=== PATIENT | male | born 1950 | race Caucasian/White ===

== ENCOUNTER 2019-04-02 06:12 | Inpatient (IN) | payer OTHER, BC ==
[2019-03-29 17:38] VITALS: BMI 30.6
[2019-04-02] MEDS ORDERED: VANCOMYCIN 1,250 MG in DEXTROSE 5%-WATER - 250 ML IVPB ONE (07:10)
[2019-04-02] MEDS ORDERED: CEFAZOLIN 2 GM/D5W 2 GM/50 ML ML IVPB ONE (07:10)
[2019-04-02] MEDS ORDERED: BENZOIN TINCTURE SWABSTICK TP ONE (07:14)
[2019-04-02] MEDS ORDERED: HEPARIN NA (PORCINE) 5,000 UNITS/ML 1ML VIAL ONE (07:14)
[2019-04-02] MEDS ORDERED: fentaNYL CITRATE 250 MCG/5 ML VIAL ONE (07:15)
[2019-04-02] MEDS ORDERED: PROPOFOL 20 ML ONE ×9 (07:15→10:18)
[2019-04-02] MEDS ORDERED: THROMBIN (BOVINE) 5,000 UNIT VIAL TP ONE ×2 (07:15→09:25)
[2019-04-02] MEDS ORDERED: MIDAZOLAM HCL 2 MG/2 ML SINGLE DOSE VIAL ONE ×2 (07:15→08:26)
[2019-04-02] MEDS ORDERED: VANCOMYCIN 1,000 MG VIAL (RESTRICTED TO ID ONLY) ONE (07:16)
[2019-04-02] MEDS ORDERED: ONDANSETRON 4 MG/2 ML VIAL ONE (07:16)
[2019-04-02] MEDS ORDERED: DEXAMETHASONE SOD PHOSPHATE 4 MG/1 ML VIAL ONE ×2 (07:16→07:36)
[2019-04-02] MEDS ORDERED: ceFAZolin SODIUM 1 GM VIAL ONE ×2 (07:16→17:40)
[2019-04-02] MEDS ORDERED: SODIUM CHLORIDE 0.9% P/F 10 ML VIAL IJ ONE (07:16)
[2019-04-02] MEDS ORDERED: EPHEDRINE SULFATE/0.9% NACL/PF 50 MG/10 ML SYRINGE NR ONE (07:27)
[2019-04-02] MEDS ORDERED: SUCCINYLCHOLINE CHLORIDE 200 MG/10 ML SYRINGE ONE (07:29)
[2019-04-02] MEDS ORDERED: TRANEXAMIC ACID 1000 MG/10 ML VIAL ONE (07:36)
[2019-04-02] MEDS ORDERED: ONDANSETRON 4 MG/2 ML VIAL IVPUSH PRN ×2 (07:48→11:12)
[2019-04-02] MEDS ORDERED: HYDROmorphone HCL CARPU-JECT 2 MG/1 ML DISP.SYRIN IVPUSH PRN (07:51)
[2019-04-02] MEDS ORDERED: HYDROmorphone HCl 2 MG/ML VIAL IVPB PRN (07:56)
[2019-04-02] MEDS ORDERED: LACTATED RINGERS SOLUTION 1,000 ML IV SCH (08:00)
[2019-04-02] MEDS ORDERED: ceFAZolin SODIUM 1 GM VIAL IVPB ONE (09:00)
[2019-04-02] MEDS ORDERED: HYDROmorphone HCl 2 MG/ML VIAL ONE ×2 (09:50→11:36)
[2019-04-02] MEDS ORDERED: oxyCODONE HCL 5 MG TABLET PO PRN ×2 (11:12)
[2019-04-02] MEDS ORDERED: diphenhydrAMINE HCL 25 MG CAPSULE (FP) PO PRN (11:12)
[2019-04-02] MEDS: HYDROmorphone HCl 2 MG/ML VIAL IVPUSH PRN ×2 (12:00→12:15)
[2019-04-02] MEDS: LACTATED RINGERS SOLUTION 1,000 ML/1,000 ML INFUS.BAG IV SCH (12:08)
[2019-04-02] MEDS ORDERED: HYDROmorphone HCl 2 MG/ML VIAL IVPUSH ONE (12:15)
[2019-04-02] MEDS ORDERED: HYDROmorphone HCL CARPU-JECT 2 MG/1 ML DISP.SYRIN IVPUSH ONE (13:17)
[2019-04-02] MEDS ORDERED: HEPARIN NA (PORCINE) 5,000 UNITS/ML 1ML VIAL SQ SCH (14:00)
[2019-04-02] MEDS: ACETAMINOPHEN 1000 MG/100 ML VIAL (NON FORMULARY) IVPB SCH ×2 (14:38→20:42)
[2019-04-02] MEDS: DOCUSATE SODIUM 100 MG CAPSULE (FP) PO SCH ×2 (14:42→22:25)
--- NOTE | 2019-04-02 15:50 | OP ---
DATE OF OPERATION: DATE OF DICTATION: 04/02/2019 SURGEON: Francois Mcginnis MD OPERATIONS SECTION MANAGER: ELYSSA Valenzuela PREOPERATIVE DIAGNOSIS: C6, 7 osteophyte disk complex prolapse with associated spinal stenosis at C6, C7 with cervical spondylogenic myelopathy. POSTOPERATIVE DIAGNOSIS: C6, 7 osteophyte disk complex prolapse with associated spinal stenosis at C6, C7 with cervical spondylogenic myelopathy. OPERATION PERFORMED: 1. Anterior cervical approach. 2. Anterior cervical diskectomy C6, 7. 3. Partial corpectomy C6, partial corpectomy C7. 4. Insertion of cage C6, 7. 5. Anterior arthrodesis C6, C7. 6. Anterior plating C6, C7. 7. Use of biplanar fluoroscopy and intraoperative neural monitoring. ANESTHESIA: General. ANTIBIOTICS GIVEN: Ancef 2 g, 10 mg of Decadron. OPERATION DETAILS: Patient correctly identified, brought to the operating room. Placed supine on the operating table. A bolster was placed behind the scapulae extending the neck appropriately. The skin was prepped with Betadine scrub solution, wiped off with alcohol, DuraPrep applied. A window drape applied to the anterior cervical region. Lateral fluoroscopic x-ray was utilized. The C6, 7 disk was barely noticeable, but the 5, 6 was clearly identified. INDICATIONS: Patient is being operated on for progressive neurological deterioration including balance disorder and associated bilateral upper limb hand radiculopathy attributable with the problems to the C7 nerve root. All conservative treatment failed. Clinical symptoms neurologically were progressive. An oblique incision in the lines of Roger just below the level of the cricothyroid cartilage. The dissection was taken through the skin. The platysma was split longitudinally. The investing lateral fascia was opened. Small anterior jugular veins were dealt with largely with unipolar and bipolar Bovie. Once the dissection was completed, with digital palpation in the area of the fuzzies the viscera and the vessels, a plane was created with no difficulty. Palpation of the anterior vertebral margin was noted. The large osteophyte for C6, 7 was readily palpable. A marker pen was placed into C5, 6 disk. This was visualized with a lateral fluoroscopic x-ray. Using a Midas Shimon bur, the osteophyte was resected flattening the anterior vertebral surface of the vertebral bodies of C6 and C7. Show Low pins were placed. The medial lateral distractors were placed along the teeth in the longus coli. No complications. The bur burred out the interbody space. The disk was resected completely. A large pea-sized loose fragment of disk harvested itself, and this was the primary cause of his problem with central resultant stenosis. The entire disk was removed. Partial corpectomy was initiated at C6 and C7, that is, both levels to facilitate removal of the large osteophyte pressing up against the cord and facilitated the resection of the posterior longitudinal ligament right down to the dura. The dura was freed from left to right hand side. Some adherence of the posterior longitudinal ligament was noted inferiorly and left well alone. Hemostasis was achieved. The Show Low pins were distracted, and a size 8-mm Fortilink spacer inserted. This was packed with biologic bone morphogenic material, namely bone putty. Once the cage had been inserted, the destractor device was removed with ligamentotaxis. The cage was held snugly in position. The plating was with a precision 16-mm plate with 4 screws 7 x 12 mm, 2 screws placed in C6 and 2 screws in C7. Verification of position of implants in lateral and AP fluoroscopic x-ray revealed excellent positioning. Neural monitoring remained stable throughout the operation. The wounds were thoroughly lavaged. Closure investing lateral fascia 2-0 Vicryl, subcutaneous 2-0 Vicryl, skin 3-0 Monocryl with Steri-Strips. Drainage nil. Operation tolerated well. No complications. MD TIN Molina/[id number]
--- NOTE | 2019-04-02 17:35 | HP ---
CHIEF COMPLAINT: Cervical stenosis (C6, C7) HISTORY OF PRESENT ILLNESS: 68M w/ pmhx of cervical and lumbar stenosis, HTN presents in the ICU, s/p cervical disk surgery anterior approach, POD #0. Upon interview, pt complains of some neck discomfort at surgical site. Denies headache/dizziness, vision changes, difficulty swallowing, difficulty with speech, upper/lower extremity weakness, paresthesias. Also denies shelton/d, n/v, chest pain, sob, abd pain, urinary/bowel symptoms. States other than the neck discomfort, he feels well and would like to eat. Pt was given Ancef 2g, Decadron 10 mg prior to surgery. Recent Travel: Denies PAST MEDICAL HISTORY: HTN Depression Cervical and lumbar stenosis PAST SURGICAL HISTORY: lithotripsy Social History: Smoking: former smoker, 2 PPD x 30 years; quit in 2016 Alcohol: Seldom drinker Drugs: Denies Retired in 2011, previously worked as an packer inspector Family History: Mother- DM Father- unknown Has 2 healthy children with no known medical hx Allergies No Known Drug Allergies Allergy (Verified 04/02/19 07:40) HOME MEDICATIONS: Home Medications Medication Instructions Recorded Amlodipine Besylate/Benazepril 1 each PO DAILY 03/29/19 [Amlodipine-Benazepril 5-20 mg] Aspirin Coated [Ecotrin -] 81 mg PO DAILY 03/29/19 Diclofenac Sodium [Voltaren] 100 gm TP PRN PRN 03/29/19 Escitalopram Oxalate [Lexapro -] 5 mg PO DAILY 03/29/19 Hydrocodone/Acetaminophen 1 each PO PRN PRN 03/29/19 [Hydrocodon-Acetaminoph 7.5-325] REVIEW OF SYSTEMS CONSTITUTIONAL: Absent: fever, chills, diaphoresis, generalized weakness, malaise, loss of appetite, weight change HEENT: +neck discomfort at surgical site Absent: rhinorrhea, nasal congestion, throat pain, throat swelling, difficulty swallowing, mouth swelling, ear pain, eye pain, visual changes CARDIOVASCULAR: Absent: chest pain, syncope, palpitations, irregular heart rate, lightheadedness , peripheral edema RESPIRATORY: Absent: cough, shortness of breath, dyspnea with exertion, orthopnea, wheezing, stridor, hemoptysis GASTROINTESTINAL: Absent: abdominal pain, abdominal distension, nausea, vomiting, diarrhea, constipation, melena, hematochezia GENITOURINARY: Absent: dysuria, frequency, urgency, hesitancy, hematuria, flank pain, genital pain MUSCULOSKELETAL: Absent: myalgia, arthralgia, joint swelling, back pain, neck pain SKIN: Absent: rash, itching, pallor HEMATOLOGIC/IMMUNOLOGIC: Absent: easy bleeding, easy bruising, lymphadenopathy, frequent infections ENDOCRINE: Absent: unexplained weight gain, unexplained weight loss, heat intolerance, cold intolerance NEUROLOGIC: Absent: headache, focal weakness or paresthesias, dizziness, unsteady gait, seizure, mental status changes, bladder or bowel incontinence PSYCHIATRIC: Absent: anxiety, depression, suicidal or homicidal ideation, hallucinations. PHYSICAL EXAMINATION Vital Signs - 24 hr 04/02/19 04/02/19 04/02/19 07:31 07:37 07:38 Temperature 98.4 F 98.4 F Pulse Rate 54 L 54 L Respiratory 20 20 Rate Blood Pressure 117/65 117/65 O2 Sat by Pulse 97 Oximetry (%) 04/02/19 04/02/19 04/02/19 11:28 11:45 12:00 Temperature 98.6 F Pulse Rate 79 77 73 Respiratory 16 18 18 Rate Blood Pressure 130/65 128/64 131/67 O2 Sat by Pulse 94 L 95 96 Oximetry (%) 04/02/19 04/02/19 04/02/19 12:15 12:30 12:45 Temperature Pulse Rate 72 69 71 Respiratory 18 18 18 Rate Blood Pressure 111/62 121/65 122/65 O2 Sat by Pulse 95 96 95 Oximetry (%) 04/02/19 04/02/19 04/02/19 13:00 13:15 13:30 Temperature Pulse Rate 71 71 75 Respiratory 18 18 18 Rate Blood Pressure 119/66 127/67 136/71 O2 Sat by Pulse 95 95 96 Oximetry (%) 04/02/19 04/02/19 04/02/19 13:45 14:00 14:15 Temperature 98.2 F Pulse Rate 77 66 65 Respiratory 18 18 18 Rate Blood Pressure 124/72 119/65 114/60 O2 Sat by Pulse 95 94 L 94 L Oximetry (%) 04/02/19 04/02/19 04/02/19 14:25 14:30 17:00 Temperature 97.8 F Pulse Rate 71 Respiratory 18 18 Rate Blood Pressure 120/73 O2 Sat by Pulse 94 L 95 Oximetry (%) GEN: Healthy, well-appearing male. NAD. AAOx3. Pleasant. HEENT: AT/NC. EOMI. MMM. Surgical dressing on anterior neck, c/d/i. Mild tenderness at site. CV: RRR. Normal S1, S2. No murmurs noted. Lung: Decreased breath sounds b/l. No wheezes, crackles, rales noted. Abd: Soft, NT/ND. Normoactive bs in all 4Q's. Ext: No peripheral edema noted. Neuro: CN II-XII intact. Gait not observed. Facial symmetry noted. Normal speech. Sensation intact b/l throughout. 5/5 muscle strength in u/l b/l extremities. Laboratory Results - last 24 hr 04/02/19 04/02/19 06:40 08:15 Blood Type O POSITIVE O POSITIVE Antibody Screen Negative ASSESSMENT/PLAN: 68M w/ pmhx of cervical and lumbar stenosis, HTN presents in the ICU, s/p cervical disk surgery anterior approach, POD #0. #Cervical Stenosis, s/p C6, C7 diskectomies, laminectomies; POD #0 Pt stable -Pain control as per surg -OOB at tolerated -PT -SCDs -Soft diet, as per surg -Cont IV abx -Advanced to soft diet per surg #HTN Cont home med: Amlodipine/Benazepil 5-20 mg QD #Depression Cont home med: Lexapro 5 MG QD Dispo -cont to monitor in ICU post-operatively Visit type - Emergency Visit Emergency Visit: Yes ED Registration Date: 04/02/19 Care time: The patient presented to the Emergency Department on the above date and was hospitalized for further evaluation of their emergent condition. - New Patient This patient is new to me today: Yes Date on this admission: 04/03/19 - Critical Care Critical Care patient: Yes Total Critical Care Time (in minutes): 40 Critical Care Statement: The care of this patient involved high complexity decision making to prevent further life threatening deterioration of the patient 's condition and/or to evaluate & treat vital organ system(s) failure or risk of failure. ATTENDING PHYSICIAN STATEMENT I saw and evaluated the patient. I reviewed the resident's note and discussed the case with the resident. I agree with the resident's findings and plan as documented. SUBJECTIVE: OBJECTIVE: ASSESSMENT AND PLAN:
--- NOTE | 2019-04-02 17:39 | CONSULT ---
Consultation: REQUESTING PROVIDER: CONSULT REQUEST: We have been asked to medically evaluate this patient for post op management. HISTORY OF PRESENT ILLNESS: This is a 68 year old male with PMH significant for TIA (2016), HTN, and C6, C7 osteophyte prolapse. He underwent an elective anterior cervical discectomy laminectomy with fusion today for B/L upper limb radiculopathy. His symptoms began approximately 2 years ago, when he noticed several episodes of numbness and tingling in his hand B/L per day, which would resolve after repositioning his arms. Soon afterwards, he developed occasional episodes of difficulty maintaining balance. There episodes were sudden in onset, lasted a few minutes, and were not associated with any dizziness or pre-syncopal symptoms. He did not have any associated weakness or focal deficits. He has also had lower back pain for the past 6 years, and has been diagnosed with lumbar stenosis. He is currently complaining of pain at the operation site, as well as his lower back. He has not passed gas, but has urinated 3 times since his surgery. He denies any fevers, chills, headache, dizziness, visual disturbances, chest pain , palpitations, SOB, cough, abdominal pain, nausea, vomiting, diarrhea, dysuria , hematuria, chest pain, or palpitations. REVIEW OF SYSTEMS: CONSTITUTIONAL: Absent: fever, chills, diaphoresis, generalized weakness, malaise, loss of appetite, weight change HEENT: Absent: rhinorrhea, nasal congestion, throat pain, throat swelling, difficulty swallowing, mouth swelling, ear pain, eye pain, visual changes CARDIOVASCULAR: Absent: chest pain, syncope, palpitations, irregular heart rate, lightheadedness , peripheral edema RESPIRATORY: Absent: cough, shortness of breath, dyspnea with exertion, orthopnea, wheezing, stridor, hemoptysis GASTROINTESTINAL: Absent: abdominal pain, abdominal distension, nausea, vomiting, diarrhea, constipation, melena, hematochezia GENITOURINARY: Absent: dysuria, frequency, urgency, hesitancy, hematuria, flank pain, genital pain MUSCULOSKELETAL: neck pain, back pain Absent: myalgia, arthralgia, joint swelling SKIN: Absent: rash, itching, pallor HEMATOLOGIC/IMMUNOLOGIC: Absent: easy bleeding, easy bruising, lymphadenopathy, frequent infections ENDOCRINE: Absent: unexplained weight gain, unexplained weight loss, heat intolerance, cold intolerance NEUROLOGIC: Absent: headache, focal weakness or paresthesias, dizziness, unsteady gait, seizure, mental status changes, bladder or bowel incontinence PSYCHIATRIC: Absent: anxiety, depression, suicidal or homicidal ideation, hallucinations. PHYSICAL EXAMINATION Vital Signs - 24 hr 04/02/19 04/02/19 04/02/19 07:31 07:37 07:38 Temperature 98.4 F 98.4 F Pulse Rate 54 L 54 L Respiratory 20 20 Rate Blood Pressure 117/65 117/65 O2 Sat by Pulse 97 Oximetry (%) 04/02/19 04/02/19 04/02/19 11:28 11:45 12:00 Temperature 98.6 F Pulse Rate 79 77 73 Respiratory 16 18 18 Rate Blood Pressure 130/65 128/64 131/67 O2 Sat by Pulse 94 L 95 96 Oximetry (%) 04/02/19 04/02/19 04/02/19 12:15 12:30 12:45 Temperature Pulse Rate 72 69 71 Respiratory 18 18 18 Rate Blood Pressure 111/62 121/65 122/65 O2 Sat by Pulse 95 96 95 Oximetry (%) 04/02/19 04/02/19 04/02/19 13:00 13:15 13:30 Temperature Pulse Rate 71 71 75 Respiratory 18 18 18 Rate Blood Pressure 119/66 127/67 136/71 O2 Sat by Pulse 95 95 96 Oximetry (%) 04/02/19 04/02/19 04/02/19 13:45 14:00 14:15 Temperature 98.2 F Pulse Rate 77 66 65 Respiratory 18 18 18 Rate Blood Pressure 124/72 119/65 114/60 O2 Sat by Pulse 95 94 L 94 L Oximetry (%) 04/02/19 04/02/19 04/02/19 14:25 14:30 17:00 Temperature 97.8 F Pulse Rate 71 Respiratory 18 18 Rate Blood Pressure 120/73 O2 Sat by Pulse 94 L 95 Oximetry (%) GENERAL: Awake, alert, and fully oriented, complaining of pain at the surgical site as well as lower back pain HEAD: Normal with no signs of trauma. EYES: Pupils equal, round and reactive to light, extraocular movements intact, sclera anicteric, conjunctiva clear. No lid lag. EARS, NOSE, THROAT: Ears normal, nares patent, oropharynx clear without exudates. Moist mucous membranes. NECK: Limited ROM due to pain, bandage on anterior aspect of neck LUNGS: Breath sounds equal, clear to auscultation bilaterally. No wheezes, and no crackles. No accessory muscle use. HEART: Regular rate and rhythm, normal S1 and S2 without murmur, rub or gallop. ABDOMEN: Soft, nontender, not distended, normoactive bowel sounds, no guarding, no rebound, no masses. No hepatomegaly or splenomegaly. MUSCULOSKELETAL: Normal range of motion at all joints. No bony deformities or tenderness. No CVA tenderness. LOWER EXTREMITIES: 2+ pulses, warm, well-perfused. No calf tenderness. No peripheral edema. NEUROLOGICAL: Motor strength: 5/5 in abduction/adduction of shoulder, flexion/ extension of elbow and hands, abduction/adduction of thumbs and fingers, flexion/extension of knee, ankle, and toes. Sensations: intact in upper and lower limbs B/L. Cerebellar: Rapid alternating movements normal, finger to nose normal , no nystagmus CN II-XII: Intact DTRs: Intact Babinski: Negative B/L PSYCHIATRIC: Cooperative. Good eye contact. Appropriate mood and affect. SKIN: Warm, dry, normal turgor, no rashes or lesions noted. Laboratory Results - last 24 hr 04/02/19 04/02/19 06:40 08:15 Blood Type O POSITIVE O POSITIVE Antibody Screen Negative Active Medications Generic Name Dose Route Start Last Admin Trade Name Freq PRN Reason Stop Dose Admin Acetaminophen 1,000 mg 04/02/19 08:00 04/02/19 14:38 Ofirmev Injection - IVPB 04/03/19 02:01 1,000 mg Q6H LIVAN Administration Diphenhydramine HCl 25 mg 04/02/19 11:12 Benadryl - PO Q6H PRN FOR ITCHING Docusate Sodium 100 mg 04/02/19 14:00 04/02/19 14:42 Colace - PO Not Given TID LIVAN Folic Acid 1 mg 04/03/19 10:00 Folic Acid - PO DAILY LIVAN Hydromorphone HCl 0.5 mg 04/02/19 07:53 Dilaudid Vial - IVPB Q3H PRN PAIN LEVEL 7 - 10 Hydromorphone HCl 0.25 mg 04/02/19 07:56 Dilaudid Vial - IVPB Q3H PRN PAIN LEVEL 4 - 6 Cefazolin Sodium 1 gm/ 50 mls @ 100 mls/hr 04/02/19 18:00 Dextrose IVPB 04/03/19 17:59 Q8H-IV LIVAN Lactated Ringer's 1,000 ml in 1,000 mls @ 125 mls/hr 04/02/19 11:15 04/02/19 12:08 Lactated Ringers Solution IV 400 mls/hr ASDIR LIVAN Administration Ondansetron HCl 4 mg 04/02/19 11:12 Zofran Injection IVPUSH Q6H PRN NAUSEA ASSESSMENT/PLAN: This is a 68 year old male with PMH significant for TIA (2016), HTN, and C6, C7 osteophyte prolapse. POD #0 for elective anterior cervical discectomy laminectomy with fusion today for B/L upper limb radiculopathy. #APPLICATION ASSISTANT - Pain: Hydromorphone 0.25mg IV once, 0.5mg IV Q3H PRN - Nausea; Zofran 4mg IV Q6H #GI - Docusate 100mg PO TID #CVS - Continue Amlodipine Besylate 5mg PO - Continue Lisinopril 20mg PO #ID - Cefazolin 2gm once, followed by 1gm IV Q8H - Vanco 1250mg once #Respiratory - Incentive Spirometer - NC O2 4L #Psych - Continue Escitalopram 5mg PO #FEN - R/L @ 125 - NPO, advance as tolerated #DVT PE - SCDs #Dispo - We will continue to follow the patient. Thank you for this consultative opportunity. Visit type - Emergency Visit Emergency Visit: No - New Patient This patient is new to me today: Yes Date on this admission: 04/03/19 - Critical Care Critical Care patient: Yes Total Critical Care Time (in minutes): 47 Critical Care Statement: The care of this patient involved high complexity decision making to prevent further life threatening deterioration of the patient 's condition and/or to evaluate & treat vital organ system(s) failure or risk of failure. ATTENDING PHYSICIAN STATEMENT I saw and evaluated the patient. I reviewed the resident's note and discussed the case with the resident. I agree with the resident's findings and plan as documented. SUBJECTIVE: OBJECTIVE: ASSESSMENT AND PLAN:
[2019-04-02] MEDS ORDERED: DEXTROSE 5%-WATER - 50 ML IVPB ONE (17:40)
[2019-04-02] MEDS: CEFAZOLIN 1 GM in DEXTROSE 5%-WATER - 50 ML IVPB SCH (17:51)
--- NOTE | 2019-04-02 18:04 | PN ---
Teaching Attending Note Name of Resident: Destiny Cerna ATTENDING PHYSICIAN STATEMENT I saw and evaluated the patient. I reviewed the resident's note and discussed the case with the resident. I agree with the resident's findings and plan as documented. SUBJECTIVE: CC: s/p cervical sx. HPI: 68 y/o man with h/o HTN, cervical and lumbar spinal stenosis, nephrolithiasis, who presented for cervical spine sx. He is now in ICU , has pain in throat, no SOB . has pain in neck. previously he had numbness in upper extremities ( intermittent) , now he does not have it. He denies any weakness. OBJECTIVE: NAD , awake, alert, oriented. HEENT: oropharynx is bruised. nl tongue ,MMM, a clean dressing on anterior neck area CV: RRR, no MRG Lungs: CTAB Abd: soft, NT, ND , NL Bs Ext: No edema or erythema in upper or lower extremities. Neuro: round equal pupils, reactive to light , no facial droop. tongue at mid line Strength 5/5 in upper and lower extremities proximally and distally. Sensation to light touch intact . reflexes 1+ biceps and knee jerk b/l. ASSESSMENT AND PLAN: 68 y/o man with h/o HTN, cervical and lumbar spinal stenosis, nephrolithiasis, who presented for cervical spine sx. 1- S/P C6-7 corpectomies, and laminectomies: - doing well . - SCDS - PT _ pain control - krista-op Abx - no vargas - NPO per sx 2- H/o HTN: will cont his norvasc/benazapril 4- Depression : cont SSRI Dispo : depends on pain control and PT .? home tomorrow
[2019-04-02] MEDS: HYDROmorphone HCl 2 MG/ML VIAL IVPB PRN (21:36)
[2019-04-03] MEDS ORDERED: ceFAZolin SODIUM 1 GM VIAL ONE ×2 (02:02→12:31)
[2019-04-03] MEDS ORDERED: DEXTROSE 5%-WATER - 50 ML IVPB ONE ×2 (02:02→12:32)
[2019-04-03] MEDS: CEFAZOLIN 1 GM in DEXTROSE 5%-WATER - 50 ML IVPB SCH ×2 (02:06→10:00)
[2019-04-03] MEDS: ACETAMINOPHEN 1000 MG/100 ML VIAL (NON FORMULARY) IVPB SCH (02:48)
[2019-04-03] MEDS: LACTATED RINGERS SOLUTION 1,000 ML/1,000 ML INFUS.BAG IV SCH ×2 (03:18→12:28)
[2019-04-03] MEDS: DOCUSATE SODIUM 100 MG CAPSULE (FP) PO SCH ×2 (06:32→16:01)
[2019-04-03 07:08] LABS: HEMATOCRIT 40.3 % (35.4-49); HEMOGLOBIN 13.9 GM/dL (11.7-16.9); MCH 31.2 pg (25.7-33.7); MCHC 34.6 g/dl (32.0-35.9); MEAN CELL VOLUME 90.3 fl (80-96); MEAN PLT VOLUME 8.1 fl (7.5-11.1); PLATELET COUNT 217 K/MM3 (134-434); RBC 4.46 M/mm3 (4.00-5.60); WHITE BLOOD COUNT 10.6 K/mm3 (4.0-10.0)
[2019-04-03 07:35] LABS: BLOOD UREA NITROGEN 7.1 mg/dL (7-18); CALCIUM 9.1 mg/dL (8.5-10.1); CREATININE 0.7 mg/dL (0.55-1.3)
[2019-04-03] MEDS ORDERED: oxyCODONE HCL 5 MG TABLET PO PRN ×2 (09:15)
[2019-04-03] MEDS ORDERED: ACETAMINOPHEN 1000 MG/100 ML VIAL (NON FORMULARY) IVPB PRN (09:17)
[2019-04-03] MEDS: HYDROmorphone HCl 2 MG/ML VIAL IVPB PRN (09:20)
--- NOTE | 2019-04-03 09:22 | PN ---
Progress Note (short form) - Note Progress Note: S/P C6-7 ACDF Pt seen and examined. Endorses some R posterior shoulder pain and neck pain. Slightly improved with meds. Also has some throat discomfort. Has not had any PO intake. Has not been oob, voiding without issue. Denies cp/sob, n/v/d. Vital Signs Temp 98.2 F 04/03/19 02:00 Pulse 74 04/03/19 08:00 Resp 16 04/03/19 08:00 BP 147/80 04/03/19 08:00 Pulse Ox 95 04/02/19 21:00 Intake & Output 04/02/19 04/02/19 04/03/19 11:59 23:59 11:59 Intake Total 1000 1775 1025 Output Total 50 2300 500 Balance 950 -525 525 Intake: IV 1000 1525 875 LACTATED RINGERS SOLUTION 1125 875 1,000 ml In 1,000 ml @ 125 mls/hr IV ASDIR LIVAN Rx#:[id number] IVPB 250 150 Output: Urine 2300 500 Void 1800 500 Estimated Blood Loss 50 Other: Voiding Method Urinal Bowel Movement No No CBC, BMP 04/03/19 06:24 04/03/19 06:24 Gen: awake, alert, nad Neck: Dressing c/d/i, no surrounding erythema or ecchymosis, trace edema. Resp: Unlabored on RA Neuro: B/L email deployment specialist strength strong and intact, 5/5 biceps/triceps, shoulder shrug strong and equal bilaterally. 5/5 dorsi/plantarflexion, SILT b/l UE/LEs A/P: 68 y/o M w/ pmhx HTN, cervical and lumbar stenosis, s/p C6-7 ACDF. Afebrile, VSS Wound and neuro exam stable Labs stable -Pain regimen with Oxycodone 5/10mg q3hrs prn, Ofirmev q6h scheduled, Flexeril 5mg tid sched -Warm packs for posterior shoulder pain as needed -Clear liquids advance to soft as tolerated -OOb with PT -Complete prophylactic abx (ancef 1g q8hrs) -Monitor I&Os -Monitor VS and neurovasc checks prn -Incentive spirometer encouraged -Pt may be discharged later today if pain is controlled and pt has ambulated with PT, tolerated PO d/w attending Dr Mcginnis
[2019-04-03] MEDS ORDERED: ASPIRIN COATED 81 MG TABLET.EC PO SCH (10:00)
[2019-04-03] MEDS ORDERED: amLODIPine BESYLATE 5 MG TABLET (FP) PO SCH (10:00)
[2019-04-03] MEDS ORDERED: LISINOPRIL 20 MG TABLET (FP) PO SCH (10:00)
[2019-04-03] MEDS ORDERED: ESCITALOPRAM OXALATE 10 MG TABLET (FP) PO SCH (10:00)
[2019-04-03] MEDS ORDERED: FOLIC ACID 1 MG TABLET (FP) PO SCH (10:00)
[2019-04-03] MEDS ORDERED: HEPARIN NA (PORCINE) 5,000 UNITS/ML 1ML VIAL SQ SCH (10:00)
[2019-04-03] MEDS ORDERED: PATIENT'S OWN MEDICATION (NON-FORMULARY) (Amlodipine Besylate/Benazepril [Amlodipine-Benaz PO SCH (10:00)
[2019-04-03] MEDS: CYCLOBENZAPRINE HCL 5 MG TABLET PO SCH ×2 (10:09→16:00)
--- NOTE | 2019-04-03 12:05 | PN ---
Teaching Attending Note Name of Resident: Silvia Castillo ATTENDING PHYSICIAN STATEMENT I saw and evaluated the patient. I reviewed the resident's note and discussed the case with the resident. I agree with the resident's findings and plan as documented. SUBJECTIVE: Patient seen and examined in the ICU. Awake and alert. Pain seems a little better. No CP or SOB. Intake & Output 03/31/19 04/01/19 04/02/19 04/03/19 23:59 23:59 23:59 23:59 Intake Total 2775 1025 Output Total 2350 500 Balance 425 525 Last Vital Signs Temp Pulse Resp BP Pulse Ox 98.2 F 74 16 147/80 95 04/03/19 02:00 04/03/19 08:00 04/03/19 08:00 04/03/19 08:00 04/02/19 21:00 Active Medications Acetaminophen (Ofirmev Injection -) 1,000 mg IVPB Q6H PRN PRN Reason: PAIN Amlodipine Besylate (Norvasc -) 5 mg PO DAILY [facility] Last Admin: 04/03/19 10:04 Dose: 5 mg Benzocaine/Menthol (Cepacol Lozenge -) 1 each MM Q4H LIVAN Cyclobenzaprine HCl (Cyclobenzaprine Hcl) 5 mg PO TID [facility] Last Admin: 04/03/19 10:09 Dose: 5 mg Diphenhydramine HCl (Benadryl -) 25 mg PO Q6H PRN PRN Reason: FOR ITCHING Docusate Sodium (Colace -) 100 mg PO TID [facility] Last Admin: 04/03/19 06:32 Dose: Not Given Escitalopram Oxalate (Lexapro -) 5 mg PO DAILY [facility] Last Admin: 04/03/19 10:04 Dose: 5 mg Folic Acid (Folic Acid -) 1 mg PO DAILY [facility] Last Admin: 04/03/19 10:04 Dose: 1 mg Cefazolin Sodium 1 gm/ (Dextrose) 50 mls @ 100 mls/hr IVPB Q8H-IV LIVAN Stop: 04/03/19 17:59 Last Admin: 04/03/19 02:06 Dose: 100 mls/hr Lactated Ringer's (Lactated Ringers Solution) 1,000 ml in 1,000 mls @ 125 mls/ hr IV ASDIR [facility] Last Admin: 04/03/19 03:18 Dose: 125 mls/hr Lisinopril (Prinivil) 20 mg PO DAILY LIVAN Last Admin: 04/03/19 10:04 Dose: 20 mg Ondansetron HCl (Zofran Injection) 4 mg IVPUSH Q6H PRN PRN Reason: NAUSEA Oxycodone HCl (Roxicodone -) 5 mg PO Q4H PRN PRN Reason: PAIN LEVEL 1-5 Oxycodone HCl (Roxicodone -) 10 mg PO Q4H PRN PRN Reason: PAIN LEVEL 6-10 NAD , awake, alert, oriented. HEENT: (-) Pallor, (-) Icterus, clean dressing on anterior neck area CV: RRR Lungs: Clear Abd: soft, NT, ND , NL Bs Ext: No edema or erythema in upper or lower extremities. Neuro: Non-focal Laboratory Results - last 24 hr 04/03/19 04/03/19 06:24 06:24 WBC 10.6 H RBC 4.46 Hgb 13.9 Hct 40.3 MCV 90.3 MCH 31.2 MCHC 34.6 RDW 13.0 Plt Count 217 MPV 8.1 Sodium 138 Potassium 4.0 Chloride 103 Carbon Dioxide 29 Anion Gap 6 L BUN 7.1 Creatinine 0.7 Est GFR (CKD-EPI)AfAm 113.18 Est GFR (CKD-EPI)NonAf 97.65 Random Glucose 109 H Calcium 9.1 IMP: POD #1: C6 to C7 corpectomies and laminectomies HTN Cervical and lumbar spinal stenosis Nephrolithiasis Pain control Incentive Spirometry VTE prophylaxis Home meds PO as tolerated PT / OOB to chair Dr Avelar
[2019-04-03] MEDS: BENZOCAINE/MENTH/CETYLPYRD CL 1 EACH LOZENGE MM SCH ×2 (12:33→16:00)
--- NOTE | 2019-04-03 13:15 | PN ---
Physical Exam: SUBJECTIVE: Patient seen and examined at bedside. Patient complaining of pain at surgery site but otherwise in good spirts. No acute events overnight. Patient states he has not yet passed gas. OBJECTIVE: Vital Signs Period Temp Pulse Resp BP Sys/Obando Pulse Ox Last 24 Hr 97.7 F-98.3 F 64-96 16-22 109-147/47-89 94-96 GENERAL: The patient is awake, alert, and fully oriented, in no acute distress. HEAD: Normal with no signs of trauma. EYES: PERRL, EOMI. ENT: nares patent, oropharynx clear without exudates, moist mucous membranes. NECK: Trachea midline, full range of motion, supple. LUNGS: Breath sounds equal, clear to auscultation bilaterally, no wheezes, no crackles, no accessory muscle use. HEART: Regular rate and rhythm, S1, S2 without murmur, rub or gallop. ABDOMEN: Soft, nontender, nondistended, normoactive bowel sounds, no guarding, no rebound, no hepatosplenomegaly, no masses. EXTREMITIES: 2+ pulses, warm, well-perfused, no edema. NEUROLOGICAL: Cranial nerves II through XII grossly intact. 5/5 strength upper and lower extremities. Grossly normal sensation. Normal speech, gait not observed. PSYCH: Normal mood, normal affect. SKIN: Warm, dry, normal turgor, no rashes or lesions noted Laboratory Results - last 24 hr 04/03/19 04/03/19 06:24 06:24 WBC 10.6 H RBC 4.46 Hgb 13.9 Hct 40.3 MCV 90.3 MCH 31.2 MCHC 34.6 RDW 13.0 Plt Count 217 MPV 8.1 Sodium 138 Potassium 4.0 Chloride 103 Carbon Dioxide 29 Anion Gap 6 L BUN 7.1 Creatinine 0.7 Est GFR (CKD-EPI)AfAm 113.18 Est GFR (CKD-EPI)NonAf 97.65 Random Glucose 109 H Calcium 9.1 Active Medications Generic Name Dose Route Start Last Admin Trade Name Freq PRN Reason Stop Dose Admin Acetaminophen 1,000 mg 04/03/19 09:17 Ofirmev Injection - IVPB Q6H PRN PAIN Amlodipine Besylate 5 mg 04/03/19 10:00 04/03/19 10:04 Norvasc - PO 5 mg DAILY LIVAN Administration Benzocaine/Menthol 1 each 04/03/19 09:45 04/03/19 12:33 Cepacol Lozenge - MM 1 each Q4H LIVAN Administration Cyclobenzaprine HCl 5 mg 04/03/19 09:18 04/03/19 10:09 Cyclobenzaprine Hcl PO 5 mg TID LIVAN Administration Diphenhydramine HCl 25 mg 04/02/19 11:12 Benadryl - PO Q6H PRN FOR ITCHING Docusate Sodium 100 mg 04/02/19 14:00 04/03/19 06:32 Colace - PO Not Given TID LIVAN Escitalopram Oxalate 5 mg 04/03/19 10:00 04/03/19 10:04 Lexapro - PO 5 mg DAILY LIVAN Administration Folic Acid 1 mg 04/03/19 10:00 04/03/19 10:04 Folic Acid - PO 1 mg DAILY LIVAN Administration Cefazolin Sodium 1 gm/ 50 mls @ 100 mls/hr 04/02/19 18:00 04/03/19 10:00 Dextrose IVPB 04/03/19 17:59 100 mls/hr Q8H-IV LIVAN Administration Lactated Ringer's 1,000 ml in 1,000 mls @ 125 mls/hr 04/02/19 11:15 04/03/19 12:28 Lactated Ringers Solution IV Not Given ASDIR LIVAN Lisinopril 20 mg 04/03/19 10:00 04/03/19 10:04 Prinivil PO 20 mg DAILY LIVAN Administration Ondansetron HCl 4 mg 04/02/19 11:12 Zofran Injection IVPUSH Q6H PRN NAUSEA Oxycodone HCl 5 mg 04/03/19 09:15 04/03/19 12:20 Roxicodone - PO 5 mg Q4H PRN Administration PAIN LEVEL 1-5 Oxycodone HCl 10 mg 04/03/19 09:15 Roxicodone - PO Q4H PRN PAIN LEVEL 6-10 ASSESSMENT/PLAN: 68 y/o/m with PMHx of TIA (2016), HTN, depression, and C6, C7 osteophyte prolapse. POD #1 for elective anterior cervical discectomy laminectomy with fusion today for B/L upper limb radiculopathy. #HOME APPLIANCE TECH - Pain: Oxycodone 5/10mg Q3hr PRN. Ofirmev Q6hr, Flexiril 5mg TID - Nausea; Zofran 4mg IV Q6H #GI - Docusate 100mg PO TID #CVS - Continue Amlodipine Besylate 5mg PO - Continue Lisinopril 20mg PO #ID - Cefazolin 2gm once, followed by 1gm IV Q8H #Respiratory - Encourage incentive Spirometer use - NC O2 4L #Psych - Continue Escitalopram 5mg PO #FEN - LR @ 125 - clear liquid diet #DVT PE - SCDs #Dispo - We will continue to follow the patient. Thank you for this consultative opportunity. - As per primary team, patient may be discharged today if pain is well controlled and pt has ambulated with PT and tolerated PO intake. Visit type - Emergency Visit Emergency Visit: No - New Patient This patient is new to me today: Yes Date on this admission: 04/04/19 - Critical Care Critical Care patient: Yes Total Critical Care Time (in minutes): 36 Critical Care Statement: The care of this patient involved high complexity decision making to prevent further life threatening deterioration of the patient 's condition and/or to evaluate & treat vital organ system(s) failure or risk of failure. ATTENDING PHYSICIAN STATEMENT I saw and evaluated the patient. I reviewed the resident's note and discussed the case with the resident. I agree with the resident's findings and plan as documented. SUBJECTIVE: OBJECTIVE: ASSESSMENT AND PLAN:
[2019-04-03 13:22] VITALS: TEMP 98.4
--- NOTE | 2019-04-03 14:23 | PN ---
Progress Note (short form) - Note Progress Note: Anesthesia PO#1 S/P C6-7 ACDF under GA VSS,orals started,no N/V,pain is under control. Going to be discharged today. Brianna Dorado MD.
--- NOTE | 2019-04-03 14:42 | PN ---
Teaching Attending Note Name of Resident: Zonia Shah ATTENDING PHYSICIAN STATEMENT I saw and evaluated the patient. I reviewed the resident's note and discussed the case with the resident. I agree with the resident's findings and plan as documented. SUBJECTIVE: No fever or chills. No SILVA ,has sore throat. N o SOB or difficulty. painin neck at incision site. did not have gas or BM as of 9 am OBJECTIVE: NAD , awake, alert, oriented. HEENT: ,MMM, a clean dressing on anterior neck area CV: RRR, no MRG Lungs: CTAB Abd: soft, NT, ND , NL Bs Ext: No edema or erythema in upper or lower extremities. Neuro: round equal pupils, reactive to light , no facial droop. tongue at mid line Strength 5/5 in upper and lower extremities proximally and distally. Sensation to light touch intact. Reflexes 1+ biceps and knee jerk b/l. ASSESSMENT AND PLAN: 68 y/o man with h/o HTN, cervical and lumbar spinal stenosis, nephrolithiasis, who presented for cervical spine sx. 1- S/P C6-7 corpectomies, and laminectomies: - doing well . start diet. po pain meds PT pending 2- H/o HTN: will cont his norvasc/benazapril at dc 4- Depression: cont SSRI Dispo : will dc today. will see Pt Recs. pain meds prescribed by Sx team f/u with surgeon
--- NOTE | 2019-04-03 15:51 | DS ---
Physical Exam: SUBJECTIVE: Patient seen and examined post op. Pt appears afebrile, asymptomatic w/ no other c/o. Pt is able to ambulate with PT. OBJECTIVE: Vital Signs Period Temp Pulse Resp BP Sys/Obando Pulse Ox Last 24 Hr 97.7 F-98.4 F 64-96 16-22 109-147/47-89 95-95 PHYSICAL EXAM GENERAL: The patient is awake, alert, and fully oriented, in no acute distress. EYES: PERRL, extraocular movements intact, ENT: moist mucous membranes. NECK: supple. LUNGS: Breath sounds equal, clear to auscultation bilaterally, no wheezes, no crackles, HEART: Regular rate and rhythm, S1, S2 without murmur, rub or gallop. ABDOMEN: Soft, nontender, nondistended, normoactive bowel sounds, no guarding, no rebound EXTREMITIES: 2+ pulses, NEUROLOGICAL: Cranial nerves II through XII grossly intact. Strength 5/5 b/l UE and LE, sensation intact b/l UE and LE, hip flexion b/l UE and LE SKIN: Warm, dry LABS Laboratory Results - last 24 hr 04/03/19 04/03/19 06:24 06:24 WBC 10.6 H RBC 4.46 Hgb 13.9 Hct 40.3 MCV 90.3 MCH 31.2 MCHC 34.6 RDW 13.0 Plt Count 217 MPV 8.1 Sodium 138 Potassium 4.0 Chloride 103 Carbon Dioxide 29 Anion Gap 6 L BUN 7.1 Creatinine 0.7 Est GFR (CKD-EPI)AfAm 113.18 Est GFR (CKD-EPI)NonAf 97.65 Random Glucose 109 H Calcium 9.1 HOSPITAL COURSE: Date of Admission:04/02/19 68M w/ pmhx of cervical and lumbar stenosis, HTN is admitted to the ICU s/p cervical disk surgery. Surgery was a anterior approach, anterior cervical disectomy c6/7, partial corpectomy c6, insertion of cage c6/7, anterior plating, anterior arthrodesis, fluroscopy. Pt was given Ancef 2g, Decadron 10 mg prior to surgery, labs were drawn. Pt's post op pain was managed w/ oxycodone and hydromorphone. Pt was assisted in ambulation by PT. HTN was managed w/ amlodipine/benazepil. Labs: within normal range Date of Discharge: 04/03/19 Minutes to complete discharge: 35 Discharge Summary Problems reviewed: Yes Reason For Visit: RADICULOPATHY, CERVICAL REGION Current Active Problems Cervical spinal stenosis (Chronic) Condition: Improved - Instructions Diet, Activity, Other Instructions: Post-operative Instructions Wound Keep your dressing clean and dry and in place. Do not remove unless it becomes dirty, if this happens you should call the office prior to removing the dressing. Do not shower until you are cleared by your surgeon. Sponge bathe only. Do not swim or soak in water (bath/hot tub, etc) until cleared by your surgeon as this can lead to infection. Do not put creams or ointments on the wound for at least 4 weeks. Diet Cold liquids/foods (like ice chips, pudding, yogurt, ice cream, popsicles) are recommended initially then progress slowly to advance diet. Avoid hot foods for at least the first several days after surgery. A sensation of having a lump in your throat is normal. This may make it feel uncomfortable to swallow large bites of solid food. You should take small bites, chew well, and/or eat soft foods until this resolves. Make sure to increase your fiber intake and drink plenty of fluids (unless you have fluid restrictions due to a medical condition), to prevent constipation which is a side affect of narcotic pain medication. You may also take a stool softener such as Dulcolax. Collar You will be given a collar after surgery. This is to be worn for your comfort. Pain Relief Take pain medication as prescribed. DO NOT EVER DRIVE OR OPERATE HEAVY MACHINERY WHILE TAKING NARCOTIC PAIN MEDICATION. If the pain medication you have been prescribed for pain contains Acetaminophen (Tylenol), do not take additional Tylenol. You should not exceed more than 4g (4000mg) of Tylenol in 24 hours as this can lead to liver damage or failure. No anti-inflammatory medications (NSAIDs: Motrin, Ibuprofen, Excedrin, Advil , Aspirin, etc) for 3 months following surgery. Use of these medications could delay the healing of your fusion. Exercise/Activity Avoid riding in a car for 2 weeks unless medically necessary. The best exercise is walking. Small amounts done frequently are best. Try to set a goal of one mile per day total. It is best to stay mobile to avoid development of blood clots in your legs. Repetitive activities using your arms may aggravate muscle spasms around your neck and upper back. Modify your activity with this in mind. Do not lift your arms above your head for the first 8 weeks after surgery. It is okay to raise your arms to comb and wash your hair once you are cleared to shower. Do not lift more than 5 lbs for the first 8 weeks after surgery. Avoid stairs while you are wearing your collar they are a fall hazard. NO running. You may use a treadmill to walk, with no incline. Use with caution. You may sleep on your side or back but NOT on your stomach as long as your cervical is securely in place. Many patients find comfort in a reclining chair. You may NOT drive until cleared by your surgeon. You may be a passenger for a short time (20 - 30 minutes) until you are able to tolerate longer distances. No sexual activity until discussed with your spine surgeon. DO NOT SMOKE. This increases the chance that your bone will not heal properly. See your primary care physician if you need assistance to quit smoking. ISTOP: [id number] Percocet 7.5-325 filled 03/07 quantity 60 tabs for 30 day supply Follow-up Please call the office to schedule your follow up appointment in 1 week. Call your doctors office or go to the ER immediately if you develop: Trouble breathing, chest tightness or shortness of breath Oral temperature greater than 100.5 F Excessive redness, swelling, or drainage at the incision site, particularly swelling around the neck incision. Foul odor from the incision. New, increasing pain/numbness/weakness in your arms/legs Please continue your home medications as prescribed. Please make an appointment to follow up with your primary care physician within one week, if you do not have one you can follow up with our clinic. Referrals: [facility] [place] [Provider Group] Francois Mcginnis MD [Staff Physician] - 1 Week Disposition: HOME - Home Medications Comprehensive Discharge Medication List: Ambulatory Orders Amlodipine Besylate/Benazepril [Amlodipine-Benazepril 5-20 mg] 1 each PO DAILY 03/29/19 Aspirin Coated [Ecotrin -] 81 mg PO DAILY 03/29/19 Escitalopram Oxalate [Lexapro -] 5 mg PO DAILY 03/29/19 Acetaminophen [Tylenol] 1,000 mg PO Q6H #30 capsule 04/03/19 Cyclobenzaprine HCl 5 mg PO TID 7 Days #18 tablet MDD 3 04/03/19 Docusate Sodium [Colace -] 100 mg PO TID #30 capsule 04/03/19 oxyCODONE HCL [Roxicodone -] 5 mg PO Q4H PRN 7 Days #30 tablet MDD 6 04/03/19 This patient is new to me today: Yes Date on this admission: 04/10/19 Emergency Visit: Yes ED Registration Date: 04/02/19 Care time: The patient presented to the Emergency Department on the above date and was hospitalized for further evaluation of their emergent condition. Critical Care patient: No - Discharge Referral Referred to [facility] No ATTENDING PHYSICIAN STATEMENT I saw and evaluated the patient. I reviewed the resident's note and discussed the case with the resident. I agree with the resident's findings and plan as documented. SUBJECTIVE: OBJECTIVE: ASSESSMENT AND PLAN:
[2019-04-03 16:46] VITALS: BP 131/77; PULSE 80
--- NOTE | 2019-04-03 19:15 | SURG ---
Surgery Personnel Scheduler Note Personnel Scheduler: Washington Dejesus PA-C Date of Service: 04/02/19 Diagnosis: C6/7 osteophyte disc complex prolapse with associated spinal stenosis at C6/7, cervical spondylogenic myelopathy Procedure: 1.Anterior approach 2. Anterior cervical discectomy C6/7 3. Partial corpectomy C6 4. Partial corpectomy C7 5. Insertion of cage C6/7 6. Anterior arthrodesis C6/7 7. Anterior plating C6/7 8. Fluroscopy 9. Neuromonitoring I was present for the entirety of the operative procedure. For further detail, please refer to operative report. Visit type - Case Type Case Type: Scheduled - New patient This patient is new to me today: Yes Date on this admission: 04/03/19
--- NOTE | 2019-04-04 17:25 | PATH ---
Surgical Pathology Report Patient Name: GEENA COOK [facility]. Rec. #: [id number] /Age/Gender: 1950 (Age: 68) / M Account: [id number] Location: [facility] HAND Taken: 04/02/2019 Received: 04/02/2019 Reported: 04/04/2019 Physicians: Francois Mcginnis M.D. Specimen(s) Received C6-C7 DISC Clinical History Radiculopathy cervical region Final Diagnosis DISC, C6-C7, ANTERIOR CERVICAL DISCECTOMY: BENIGN INTERVERTEBRAL DISC TISSUE AND BONE. 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 Electronically Signed Zonia Campbell M.D. Gross Description Received in formalin labeled "C6-C7 disc," is a 2.0 x 1.6 x 0.3 cm aggregate of martinez fragments of fibrocartilaginous tissue. The specimen is entirely submitted in one cassette. /04/03/2019 saudi04/03/2019
== END 2019-04-03 17:20 | disposition home or self-care (01) | DRG 472 ==
LOC: JSAMEDAYSX 06:12 → JICU 14:23
PROVIDERS: ADMIT Internal Medicine; ATTEND Internal Medicine
PROC: 0RT30ZZ Resection of Cervical Vertebral Disc, Open Approach (ICD-10-PCS; 2019-04-02)
PROC: B01BZZZ Fluoroscopy of Spinal Cord (ICD-10-PCS; 2019-04-02)
PROC: 4A1104G Monitoring of Peripheral Nervous Electrical Activity, Intraoperative, Open Approach (ICD-10-PCS; 2019-04-02)
PROC: 0RG10A0 Fusion of Cervical Vertebral Joint with Interbody Fusion Device, Anterior Approach, Anterior Column, Open Approach (ICD-10-PCS; principal; 2019-04-02 08:00)
DX: M47.12 Other spondylosis with myelopathy, cervical region (principal); M50.023 Cervical disc disorder at C6-C7 level with myelopathy; M48.02 Spinal stenosis, cervical region; M54.12 Radiculopathy, cervical region; F32.9 Major depressive disorder, single episode, unspecified; I10 Essential (primary) hypertension; N20.0 Calculus of kidney; M48.061 Spinal stenosis, lumbar region without neurogenic claudication
CPT/HCPCS: 36415; 76000-TC-FY; 80048; 85027; 86850; 86900; 86901; 88304-TC; 94010; 94760; 97116-GP; 97162-GP; J0131; J1644

== ENCOUNTER 2022-09-20 18:00 | Inpatient (IN) | payer OTHER, BC ==
[2022-09-20] MEDS ORDERED: KETOROLAC TROMETHAMINE 30 MG/1 ML VIAL IVPUSH ONE (20:44)
[2022-09-20] MEDS ORDERED: KETOROLAC TROMETHAMINE 30 MG/1 ML VIAL ONE (21:01)
[2022-09-20 21:29] LABS: ALBUMIN 2.3 g/dl (3.4-5.0); BILIRUBIN,TOTAL 0.6 mg/dl (0.2-1); CALCIUM 7.9 mg/dl (8.5-10); CREATININE 0.6 mg/dl (0.55-1.3); TOT PROT 5.7 g/dl (6.4-8.2)
[2022-09-20 21:46] LABS: HEMATOCRIT 29.2 % (35.4-49); MCH 30.2 pg (25.7-33.7); MCHC 34.2 g/dl (32.0-35.9); MEAN CELL VOLUME 88.3 fl (80-96); MEAN PLT VOLUME 7.4 fl (7.5-11.1); PLATELET COUNT 468 10^3/uL (134-434); RBC 3.31 M/mm3 (4.00-5.60); WHITE BLOOD COUNT 9.6 K/mm3 (4.0-10.0)
[2022-09-20] MEDS ORDERED: oxyCODONE HCL 5 MG TABLET PO ONE (22:22)
[2022-09-20] MEDS ORDERED: GABAPENTIN 100 MG CAPSULE PO ONE (22:23)
[2022-09-20] MEDS ORDERED: GABAPENTIN 300 MG CAPSULE ONE (22:31)
[2022-09-20] MEDS ORDERED: oxyCODONE HCL 5 MG TABLET ONE (22:31)
[2022-09-20] MEDS ORDERED: GABAPENTIN 300 MG CAPSULE PO ONE (22:33)
[2022-09-21] MEDS ORDERED: METHOCARBAMOL 750 MG TABLET PO STA (00:32)
[2022-09-21] MEDS ORDERED: METHOCARBAMOL 500 MG TABLET ONE (00:32)
[2022-09-21 06:23] VITALS: BMI 28.4
[2022-09-21 08:17] LABS: ALBUMIN 2.3 g/dl (3.4-5.0); BILIRUBIN,TOTAL 0.6 mg/dl (0.2-1); CALCIUM 7.9 mg/dl (8.5-10); CREATININE 0.4 mg/dl (0.55-1.3); TOT PROT 5.9 g/dl (6.4-8.2)
[2022-09-21] MEDS: LISINOPRIL 10 MG TABLET PO SCH (09:18)
[2022-09-21] MEDS: amLODIPine BESYLATE 5 MG TABLET (FP) PO SCH (09:18)
[2022-09-21 09:44] LABS: BASO % 0.8 % (0-2.0); EOS % 2.7 % (0-4.5); HEMATOCRIT 29.9 % (35.4-49); HEMOGLOBIN 10.7 GM/dL (11.7-16.9); LYMPH % 11.1 % (8-40); MCH 31.5 pg (25.7-33.7); MCHC 35.8 g/dl (32.0-35.9); MONO % 6.4 % (3.8-10.2); PLATELET COUNT 467 10^3/uL (134-434); RDW 13.9 % (11.9-15.9); WHITE BLOOD COUNT 6.8 K/mm3 (4.0-10.0)
[2022-09-21] MEDS: ACETAMINOPHEN 325 MG TABLET (FP) PO PRN ×2 (11:14→16:41)
[2022-09-21] MEDS: oxyCODONE HCL 5 MG TABLET PO PRN ×2 (11:15→16:41)
[2022-09-21] MEDS: GABAPENTIN 300 MG CAPSULE PO SCH ×2 (13:31→21:21)
[2022-09-21] MEDS ORDERED: ENOXAPARIN NA (PORCINE) 40 MG/0.4 ML DISP.SYRIN SQ SCH (19:15)
[2022-09-21] MEDS: CYCLOBENZAPRINE HCL 10 MG TABLET (FP) PO SCH (20:30)
[2022-09-21] MEDS: ENOXAPARIN NA (PORCINE) 40 MG/0.4 ML DISP.SYRIN SQ SCH (20:30)
[2022-09-22] MEDS: ACETAMINOPHEN 325 MG TABLET (FP) PO PRN ×3 (00:05→20:54)
[2022-09-22] MEDS: oxyCODONE HCL 5 MG TABLET PO PRN ×5 (04:00→20:53)
[2022-09-22] MEDS: GABAPENTIN 300 MG CAPSULE PO SCH ×3 (06:04→21:03)
[2022-09-22] MEDS: CYCLOBENZAPRINE HCL 10 MG TABLET (FP) PO SCH (09:38)
[2022-09-22] MEDS: LISINOPRIL 10 MG TABLET PO SCH (09:39)
[2022-09-22] MEDS: ENOXAPARIN NA (PORCINE) 40 MG/0.4 ML DISP.SYRIN SQ SCH (09:39)
[2022-09-22] MEDS: amLODIPine BESYLATE 5 MG TABLET (FP) PO SCH (09:39)
[2022-09-23] MEDS: ACETAMINOPHEN 325 MG TABLET (FP) PO PRN ×5 (01:57→19:53)
[2022-09-23] MEDS: oxyCODONE HCL 5 MG TABLET PO PRN ×5 (01:58→19:53)
[2022-09-23] MEDS: GABAPENTIN 300 MG CAPSULE PO SCH ×3 (06:14→21:17)
[2022-09-23] MEDS: ENOXAPARIN NA (PORCINE) 40 MG/0.4 ML DISP.SYRIN SQ SCH (11:01)
[2022-09-23] MEDS: LISINOPRIL 10 MG TABLET PO SCH (11:01)
[2022-09-23] MEDS: amLODIPine BESYLATE 5 MG TABLET (FP) PO SCH (11:02)
[2022-09-23] MEDS: CYCLOBENZAPRINE HCL 10 MG TABLET (FP) PO SCH (11:04)
[2022-09-23 13:36] LABS: ALBUMIN 2.7 g/dl (3.4-5.0); BILIRUBIN,TOTAL 0.6 mg/dl (0.2-1); CALCIUM 8.7 mg/dl (8.5-10); CREATININE 0.6 mg/dl (0.55-1.3); TOT PROT 6.8 g/dl (6.4-8.2)
[2022-09-23 17:17] LABS: MCH 29.3 pg (25.7-33.7); MCHC 32.5 g/dl (32.0-35.9); MEAN CELL VOLUME 90.2 fl (80-96); MEAN PLT VOLUME 7.5 fl (7.5-11.1); PLATELET COUNT 631 10^3/uL (134-434); RDW 14.5 % (11.9-15.9); WHITE BLOOD COUNT 6.2 K/mm3 (4.0-10.0)
[2022-09-23 22:31] VITALS: RESP 18
[2022-09-24] MEDS: ACETAMINOPHEN 325 MG TABLET (FP) PO PRN ×2 (01:36→06:24)
[2022-09-24] MEDS: oxyCODONE HCL 5 MG TABLET PO PRN ×3 (01:36→09:55)
[2022-09-24 01:59] VITALS: PULSE 74
[2022-09-24 06:26] VITALS: BP 125/63; TEMP 98.3
[2022-09-24] MEDS: GABAPENTIN 300 MG CAPSULE PO SCH (06:26)
[2022-09-24] MEDS: ENOXAPARIN NA (PORCINE) 40 MG/0.4 ML DISP.SYRIN SQ SCH (09:55)
[2022-09-24] MEDS: amLODIPine BESYLATE 5 MG TABLET (FP) PO SCH (09:55)
[2022-09-24] MEDS: LISINOPRIL 10 MG TABLET PO SCH (09:55)
[2022-09-24] MEDS: CYCLOBENZAPRINE HCL 10 MG TABLET (FP) PO SCH (09:56)
== END 2022-09-24 10:54 | disposition home or self-care (01) | DRG 552 ==
LOC: FER 18:00 → FM/S 23:50 → UNDOADMOB 09-21 00:01 → FM/S 09-21 00:01 → OBSVTOIN 09-22 12:24
PROVIDERS: ADMIT Internal Medicine
DX: S32.10XA Unspecified fracture of sacrum, initial encounter for closed fracture (principal); M54.9 Dorsalgia, unspecified; M48.061 Spinal stenosis, lumbar region without neurogenic claudication; I10 Essential (primary) hypertension; E78.5 Hyperlipidemia, unspecified; W19.XXXA Unspecified fall, initial encounter; Y93.9 Activity, unspecified; Y92.89 Other specified places as the place of occurrence of the external cause; Y99.9 Unspecified external cause status
CPT/HCPCS: 0241U-QW; 36415; 71045-TC-FY; 72131-TC; 74019-TC-FY; 80053; 80061; 81003; 81015; 82550; 83735; 83880; 84484; 85025; 85027; 86769; 87086; 93005; 99285-25; G0378